=== PATIENT | male | born 2000 | race African-American/Black ===

== ENCOUNTER 2024-06-23 09:27 | Emergency (ER) | payer OTHER, SELFPAY ==
[2024-06-23 09:31] VITALS: BP 129/79; PULSE 80; RESP 14; TEMP 36.6; O2SAT 99; BMI 24.3
--- NOTE | 2024-06-23 09:35 | DI.RAD.S_ITS ---
PROCEDURE: XR CHEST 1V INDICATIONS: chest pain TECHNIQUE: One view of the chest was acquired. COMPARISON: None. FINDINGS: Surgical changes and devices: None. Lungs and pleura: Lungs are clear. No pleural effusions or pneumothorax. Mediastinum: Mediastinal contours appear normal. Heart size is normal. Bones and chest wall: No suspicious bony lesions. Overlying soft tissues appear unremarkable. IMPRESSION: No acute cardiopulmonary abnormality is seen. Dictated by: Tommie Marie M.D. on 06/23/2024 at 9:53 Approved by: Tommie Marie M.D. on 06/23/2024 at 9:54
--- NOTE | 2024-06-23 09:35 | EKG_ITS ---
[address] [address] Test Date: 2024-06-23 Pat Name: Lety Gabo Department: Room: Gender: Male [employer] Content Specialist: GILMER : [id number] Requested By: Order Number: [id number] Reading MD: Jose Hill Measurements Intervals [place] Rate: 77 P: 72 NH: 156 QRS: 8 QRSD: 104 T: 31 QT: 386 QTc: 436 Interpretive Statements Normal sinus rhythm with sinus arrhythmia RSR' or QR pattern in V1 suggests right ventricular conduction delay Electronically Signed On 06-24-2024 17:39:38 PDT by Jose Hill
[2024-06-23 09:56] LABS: Add Manual Diff / Slide Review NO; Basophils Absolute Auto 0 /uL (0-100); Basophils Percent Auto 0.9 % (0-2); Eosinophils Absolute Auto 0 /uL (0-450); Eosinophils Percent Auto 0.6 % (2-4); Hematocrit 40.3 % (41-53); Hemoglobin 13.5 g/dL (13.5-17.5); Lymphocytes Absolute Auto 1400 /uL (1100-4500); Lymphocytes Percent Auto 32.1 % (25-40); Mean Corpuscular HGB Conc 33.6 % (30-36); Mean Corpuscular Hemoglobin 27.4 PG (26-34); Mean Corpuscular Volume 81.6 fL (80-100); Monocytes Absolute Auto 500 /uL (0-900); Monocytes Percent Auto 10.5 % (3-14); Neutrophils Absolute Auto 2500 /uL (1500-7000); Neutrophils Percent Auto 55.9 % (50-75); Platelet Count 341 X10^3/uL (150-400); Red Blood Cell Count 4.94 X10^6/uL (4.5-5.9); Red Cell Distribution Width 12.5 % (11.6-14.8); White Blood Cell Count 4.5 X10^3/uL (4.5-11.0)
[2024-06-23 10:03] LABS: INR 1.1 (0.9-1.3); Prothrombin Time 12.6 SECONDS (9.4-12.5)
[2024-06-23 10:08] LABS: Alanine Aminotransferase 27 IU/L (<50); Albumin 4.5 g/dL (3.5-5.0); Albumin Globulin Ratio 1.4 (1.0-2.8); Alkaline Phosphatase 79 U/L (38-126); Aspartate Aminotransferase 33 IU/L (17-59); BUN Creatinine Ratio 13.6 (6-22); Bilirubin Total 0.5 mg/dL (0.2-1.3); Blood Urea Nitrogen 12 mg/dL (9-20); Calcium 9.2 mg/dL (8.4-10.2); Carbon Dioxide 26 mmol/L (22-32); Chloride 103 mmol/L (98-107); Creatine Kinase 180 U/L (55-170); Estimated Glomerular Filt Rate > 60 mL/min (>60); Globulin 3.3 g/dL (1.7-4.1); Glucose 99 mg/dL (70-99); HEMOLYSIS < 15 (0-50); Lipase 44 U/L (23-300); Potassium 4.5 mmol/L (3.4-5.1); Sodium 138 mmol/L (137-145); Total Protein 7.8 g/dL (6.3-8.2)
[2024-06-23 10:14] LABS: PTT Partial Thromboplastin Tim 37 SECONDS (25.1-36.5)
[2024-06-23 10:20] LABS: NT-proBNP (BNP-Adult 18+) 64 pg/mL (<125); Troponin I < 0.012 ng/mL (0.01-0.034)
[2024-06-23 10:32] LABS: Influenza A - CEPHEID Flu A NEGATIVE (NEGATIVE); Influenza B - CEPHEID Flu B NEGATIVE (NEGATIVE); Respiratory Syncytial Virus Negative (Negative)
[2024-06-23 10:33] LABS: COVID-19 CEPHEID 4-PLEX PCR Negative (Negative)
--- NOTE | 2024-06-23 11:29 | ED_ITS ---
<Statement entered by Steve Diaz, - 06/23/24 18:46> Dr. Diaz co Signs statement I was available for consultation during this patient's emergency department visit. This chart is signed by myself for administrative purposes only. I did not have direct contact with this patient during this visit. They were seen independently by the [facility] HPI - Chest Pain General Chief Complaint: Chest Pain Stated Complaint: Cough , chest pain Time Seen by Provider: 06/23/24 11:20 Mode of arrival: Ambulatory History of Present Illness HPI narrative: 23-year-old male presents to the ED with 3 weeks of URI symptoms. Patient states that his symptoms started with a cold, he has been taking benzonatate, guaifenesin, pseudoephedrine for his symptoms. Patient is complaining of bilateral ear fullness, pain. Sometimes muffled hearing. No fever, chills, shortness of breath. Patient endorses residual cough and some chest tightness. No nausea, vomiting, abdominal pain, lightheadedness, dizziness, syncope. Related Data Previous Rx's Medication Instructions Recorded amoxicillin 875 mg tablet 875 mg PO Q12H 7 days #14 tabs 06/23/24 Allergies Allergy/AdvReac Type Severity Reaction Status Date / Time No Known Drug Allergies Allergy Verified 06/23/24 09:31 Review of Systems Constitutional Constitutional: Denies chills, Denies fatigue, Denies fever(s), Denies frequent falls, Denies lethargy and Denies weakness Eyes Eyes: Denies change in vision, Denies eye discharge, Denies irritation and Denies loss of vision ENT Ears, Nose, Mouth, and Throat: Denies change in voice, Denies dizziness, Reports otalgia, Denies neck pain, Denies sore throat and Denies throat swelling Comments: Bilateral ear fullness Cardiovascular Cardiovascular: Denies chest pain, Denies irregular heart rhythm, Denies lightheadedness, Denies palpitations, Denies dyspnea, Denies dyspnea on exertion and Denies orthopnea Respiratory Respiratory: Reports cough, Denies dyspnea, Denies dyspnea on exertion and Denies wheezing Comments: Chest tightness Gastrointestinal Gastrointestinal: Denies abdominal pain, Denies change in bowel habits, Denies diarrhea, Denies nausea and Denies vomiting Musculoskeletal Musculoskeletal: Denies neck pain and Denies numbness Integumentary/Breasts Skin/Breast: Denies pruritus, Denies erythema, Denies rash and Denies wounds Neurologic Neurologic: Denies behavioral changes, Denies confusion, Denies dizziness, Denies frequent falls, Denies loss of vision, Denies numbness and Denies weakness Psychiatric Psychiatric: Denies anxiety, Denies behavioral changes, Denies confusion, Denies depression, Denies homicidal ideation and Denies suicidal ideation Endocrine Endocrine: Denies fatigue, Denies flushing and Denies palpitations Hematologic/Lymphatic Hematologic/Lymphatic: Denies easy bruising Allergic/Immunologic Allergic/Immunologic: Denies urticaria, Denies throat swelling and Denies wheezing Patient History Social History Smoking Status: Current every day smoker Smoking Status: Current every day smoker tobacco type: vaping Exam Narrative Exam Narrative: Const General:?cooperative, healthy appearing and comfortable HENW[place] Head:?normal to inspection Ears:?hearing grossly normal bilaterally; bilateral tympani erythematous, bulging Nose:?external nose normal Face and sinus:?normal facial exam and sinuses nontender Mouth:?oral mucosae normal Throat:?posterior oropharynx normal Eyes General:?appearance normal, both eyes and all related structures Neck Neck:?normal visual inspection and no lymphadenopathy noted Resp Effort & Inspection:?normal respiratory effort Auscultation:?clear to auscultation bilaterally Cardio Rate:?regular rate Rhythm:?regular rhythm Neuro General:?patient alert, patient awake and patient oriented x3 Initial Vital Signs Initial Vital Signs: Vital Signs Temperature 97.8 F 06/23/24 09:31 Pulse Rate 80 06/23/24 09:31 Respiratory Rate 14 06/23/24 09:31 Blood Pressure 129/79 06/23/24 09:31 Pulse Oximetry 99 06/23/24 09:31 Oxygen Delivery Method Room Air 06/23/24 09:31 Course Orders Ordered: ED Orders 06/23/24 09:35 XR chest 1V Stat EKG-12 Lead Stat 06/23/24 09:37 Covid-19 + FLU A/B + RSV - PCR Stat 06/23/24 09:48 Complete Blood Count AUTO DIFF Stat Comprehensive Metabolic Panel Stat Lipase Stat Magnesium Stat NT-proBNP (BNP-Adult 18+) Stat PTT Partial Thromboplastin Derik Stat Prothrombin Time INR Stat Troponin & CK Cardiac Panel Stat Vital Signs Vital signs: Vital Signs - 8 hr 06/23/24 09:31 Temperature 97.8 F Pulse Rate 80 Respiratory Rate 14 Blood Pressure 129/79 Pulse Oximetry 99 Oxygen Delivery Method Room Air MDM - Chest Pain Lab Data 06/23/24 09:48 06/23/24 09:48 Labs: Lab Results 06/23/24 06/23/24 Range/Units 09:37 09:48 WBC 4.5 (4.5-11.0) X10^3/uL RBC 4.94 (4.5-5.9) X10^6/uL Hgb 13.5 (13.5-17.5) g/dL Hct 40.3 L (41-53) % MCV 81.6 (80-100) fL MCH 27.4 (26-34) PG MCHC 33.6 (30-36) % RDW 12.5 (11.6-14.8) % Plt Count 341 (150-400) X10^3/uL Neut % (Auto) 55.9 (50-75) % Lymph % (Auto) 32.1 (25-40) % Greer % (Auto) 10.5 (3-14) % Eos % (Auto) 0.6 L (2-4) % Baso % (Auto) 0.9 (0-2) % Neut # (Auto) 2500 (6100-1522) /uL Lymph # (Auto) 1400 (2622-7516) /uL Greer # (Auto) 500 (0-900) /uL Eos # (Auto) 0 (0-450) /uL Baso # (Auto) 0 (0-100) /uL PT 12.6 H (9.4-12.5) SECONDS INR 1.1 (0.9-1.3) APTT 37 H (25.1-36.5) SECONDS Sodium 138 (137-145) mmol/L Potassium 4.5 (3.4-5.1) mmol/L Chloride 103 (98-107) mmol/L Carbon Dioxide 26 (22-32) mmol/L BUN 12 (9-20) mg/dL Creatinine 0.88 (0.66-1.25) mg/dL Estimated GFR > 60 (>60) mL/min BUN/Creatinine Ratio 13.6 (6-22) Glucose 99 (70-99) mg/dL Calcium 9.2 (8.4-10.2) mg/dL Magnesium 2.0 (1.6-2.3) mg/dL Total Bilirubin 0.5 (0.2-1.3) mg/dL AST 33 (17-59) IU/L ALT 27 (<50) IU/L Alkaline Phosphatase 79 (38-126) U/L Total Creatine Kinase 180 H (55-170) U/L Troponin I < 0.012 (0.01-0.034) ng/mL NT-Pro-B Natriuret Pep 64 (<125) pg/mL Total Protein 7.8 (6.3-8.2) g/dL Albumin 4.5 (3.5-5.0) g/dL Globulin 3.3 (1.7-4.1) g/dL Albumin/Globulin Ratio 1.4 (1.0-2.8) Lipase 44 (23-300) U/L SARS-CoV-2 (PCR) Negative (Negative) Influenza A (RT-PCR) Flu a negative (NEGATIVE) Influenza B (RT-PCR) Flu b negative (NEGATIVE) RSV (PCR) Negative (Negative) MDM Narrative Medical decision making narrative: 23-year-old male presents to the ED with 3 weeks of URI symptoms. Concern for URI versus otitis media versus bronchitis versus pneumonia versus cardiac etiology versus other. Respiratory panel was negative for COVID-19, influenza, RSV. Labs within normal limits. Troponin within normal limits. BNP within normal limits. Chest x-ray without acute findings. EKG is normal sinus rhythm with sinus arrhythmia. No acute ST-T changes. No axis deviation. Physical exam indicative of bilateral otitis media. Antibiotics prescribed. Recommend Flonase. Recommend continuing cough medications. Recommend follow-up with PCP. ED return precautions discussed with patient. Patient verbalized understanding. Medical records reviewed: Yes Discharge Plan Departure Patient Disposition: Home Clinical Impression: Otitis media Qualifiers: Otitis media type: unspecified Chronicity: acute Qualified Code(s): H66.90 - Otitis media, unspecified, unspecified ear Instructions: Middle Ear Infection Activity Restrictions/Additional Instructions: You were evaluated in the ED today for a cough and chest tightness. Your labs and workup were normal. It appears that you have a ear infection from the cold. You are being prescribed antibiotics for it. Please take them as prescribed. You may also use Flonase, which is a nose spray that will help with your ear symptoms. This is available [id number] at the drug stores. You may also continue taking the cough medications. Please follow-up with your PCP as soon as possible. Return to the ED if you have worsening symptoms, trouble breathing. Prescriptions: New amoxicillin 875 mg tablet 875 mg PO Q12H 7 Days Qty: 14 0RF Referrals: ProviderJordan [Primary Care Provider] - Stand Alone Forms: Patient Portal/API/Survey
[2024-06-23 11:51] VITALS: BP 124/72; PULSE 75; RESP 20; TEMP 36.4; O2SAT 100
== END 2024-06-23 11:52 | disposition home or self-care (01) ==
PROVIDERS: Family Medicine; Emergency Provider Student in an Organized Health Care Education/Training Program
DX: H66.93 Otitis media, unspecified, bilateral (principal); R07.9 Chest pain, unspecified; F17.290 Nicotine dependence, other tobacco product, uncomplicated
CPT/HCPCS: 0241U; 36415; 71045; 80053; 82550; 83690; 83735; 83880; 84484; 85025; 85610; 85730; 93005; 99281; 99284